=== PATIENT | female | born 1940 | race Caucasian/White ===

== ENCOUNTER 2017-12-12 12:20 | Day surgery (SDC) | payer MEDICARE, BC, OTHER ==
[~2017-12-12 12:20] MED LIST: Aspirin EC81 MG PO; CARV25 PO; DEXILANT60 MG PO; EXTRA STRENGTH500 MG PO; FAMO20 PO; LEVSOD100 PO; LORATADINE10 MG PO; Lovastatin20 MG PO; Prinivil10 MG PO; SITA50T2 PO; Spironolactone25 MG PO; Super Calcium600 MG PO; VITAMIN D31000 UNIT PO; [UNRECOGNIZED DRUG - OTHER]
== END 2017-12-12 15:48 | disposition home or self-care (01) ==
LOC: ORSCSDS 12:20
PROVIDERS: Internal Medicine Gastroenterology
PROC: 0DBM8ZX Excision of Descending Colon, Via Natural or Artificial Opening Endoscopic, Diagnostic (ICD-10-PCS; principal; 2017-12-12 14:30)
PROC: 0DBL8ZX Excision of Transverse Colon, Via Natural or Artificial Opening Endoscopic, Diagnostic (ICD-10-PCS; principal; 2017-12-12 14:30)
DX: Z12.11 Encounter for screening for malignant neoplasm of colon (principal); Z86.010 Personal history of colon polyps; D12.3 Benign neoplasm of transverse colon; D12.4 Benign neoplasm of descending colon; K57.30 Diverticulosis of large intestine without perforation or abscess without bleeding; K64.8 Other hemorrhoids; E11.9 Type 2 diabetes mellitus without complications; I10 Essential (primary) hypertension; E78.00 Pure hypercholesterolemia, unspecified; E03.9 Hypothyroidism, unspecified; Z79.899 Other long term (current) drug therapy; Z79.82 Long term (current) use of aspirin
CPT/HCPCS: 82947; J7120

== ENCOUNTER 2020-10-21 10:01 | Day surgery (SDC) | payer MEDICARE, BC ==
[~2020-10-21] VITALS: Ht 152.4 cm; Wt 90.6 kg
[2020-10-21] MEDS ORDERED: ESCI20 (10:44)
--- NOTE | 2020-10-21 11:12 | NUR ---
10/21/20 1112 JENNIE LAUGHLIN 2MG VERSED GIVEN PER DR VINES'S ORDER, PRIOR TO NERVE BLOCK BEING COMPLETED. NERVE BLOCK COMPLETED AT BEDSIDE BY DR PUTNAM AT 1105. PT TOLERATED PROCEDURE WELL. NO COMPLAINTS
== END 2020-10-21 11:59 | disposition home or self-care (01) ==
LOC: ORSCSDS 10:01
PROVIDERS: Orthopaedic Surgery
PROC: 01N54ZZ Release Median Nerve, Percutaneous Endoscopic Approach (ICD-10-PCS; principal; 2020-10-21 11:15)
DX: G56.01 Carpal tunnel syndrome, right upper limb (principal); K21.9 Gastro-esophageal reflux disease without esophagitis; E11.9 Type 2 diabetes mellitus without complications; I10 Essential (primary) hypertension; E66.01 Morbid (severe) obesity due to excess calories; Z68.39 Body mass index [BMI] 39.0-39.9, adult; Z79.82 Long term (current) use of aspirin; Z79.899 Other long term (current) drug therapy
CPT/HCPCS: 82947; J2250; J3010; J7120